=== PATIENT | male | born 1955 | race Caucasian/White ===

== ENCOUNTER 2019-04-03 06:03 | Day surgery (SDC) | payer MEDICARE, OTHER ==
[2019-04-03] MEDS ORDERED: Lactated Ringers 1,000 ML IV SCH (06:30)
[2019-04-03] MEDS ORDERED: DIPRIVAN 200 MG/20 ML IV ONE (07:36)
[2019-04-03 08:48] VITALS: BP 139/80; PULSE 58; O2SAT 98
--- NOTE | 2019-04-03 09:26 | OP ---
SURGERY DATE/TIME: 04/03/2019 0730 PREOPERATIVE DIAGNOSIS: Screening exam. POSTOPERATIVE DIAGNOSIS: Sigmoid diverticulosis otherwise normal colon. PROCEDURE: Colonoscopy. SURGEON: Dr. Gaitan. ANESTHESIA: MAC. Medications given by anesthesia department. HISTORY: The patient is a 64 year-old white male presenting now for screening colonoscopy. The patient reports no problems presently. He reports that he has had two previous colonoscopies that were normal. The patient is felt the need to have endoscopic evaluation. He was appraised of the risks of the procedure including the risk of perforation, phlebitis, untoward reaction to medication, bleeding and missed lesions. The patient verbalized his understanding and desired to have the procedure performed. DESCRIPTION OF PROCEDURE: The patient was given the medications by the anesthesia department. He had continuous pulse oximetry, ECG monitoring, intermittent blood pressure monitoring and tidal CO2 monitoring during the examination. He was placed in the left lateral decubitus position. A digital rectal examination was performed and revealed normal anal sphincter tone, no masses. The prostate was enlarged but smooth. The flexible Olympus pediatric colonoscope was used to intubate the rectum. A view of the colon was developed sequentially to the cecum. There was noted to be moderate sigmoid diverticula. Upon insertion and withdrawal, including a retroflex view in the rectum, there were no other mucosal lesions encountered. The scope was removed from the patient who tolerated the procedure well and was sent back to OP recovery in good condition. The prep was noted to be fair to good.
== END 2019-04-03 08:56 | disposition home or self-care (01) ==
LOC: SDC 06:03
PROVIDERS: ATTEND Family Medicine
DX: Z12.11 Encounter for screening for malignant neoplasm of colon (principal); K57.30 Diverticulosis of large intestine without perforation or abscess without bleeding
CPT/HCPCS: J2704

== ENCOUNTER 2020-01-19 16:43 | Emergency (ER) | payer MEDICARE, OTHER ==
[2020-01-19 17:27] LABS: Absolute Neutrophil Ct (ANC) 5.76 (1.4-6.9); BASOPHIL % 0.2 % (0.0-0.4); Basophil (Absolute #) 0.02 (0-0.4); Eosinophil % 6.3 % (0.00-5.0); Eosinophil (Absolute #) 0.52 (0-0.5); Hematocrit 44.5 % (42-50); Hemoglobin 14.9 gm/dl (12.5-18.0); Lymphocyte (Absolute #) 1.26 (1.0-4.6); Lymphocytes % 15.2 % (24.0-44.0); Mean Cell Volume 89.4 fl (78-100); Mean Corpuscular Hemoglobin 29.9 pg (26-32); Mean Corpuscular Hgb Concent. 33.5 g/dl (32-36); Mean Platelet Volume 9.1 fl (7.5-11.0); Monocyte (Absolute #) 0.71 (0.0-1.3); Monocytes % 8.6 % (0.0-12.0); Neutrophil % 69.7 % (36.0-66.0); Platelet Count 226 K/mm3 (150-450); Red Blood Count 4.98 M/mm3 (4.1-5.6); Red Cell Distribution Width 14.4 % (11.5-14.0); White Blood Count 8.3 K/mm3 (4.0-10.5)
[2020-01-19 17:36] LABS: INR 1.08 (0.8-3.0); PROTIME 12.2 SECONDS (8.83-12.87)
[2020-01-19 17:39] LABS: PTT 32.4 SECONDS (24.1-36.1)
[2020-01-19 17:42] LABS: ALBUMIN 4.5 g/dL (3.5-5.0); ALKALINE PHOSPHATASE 67 U/L (38-126); ANION GAP 12.5 MEQ/L (5-15); BLOOD UREA NITROGEN 17 mg/dL (9-20); CHLORIDE 100 mmol/L (98-107); Calcium 9.5 mg/dL (8.4-10.2); Carbon Dioxide 28 mmol/L (22-30); Creatinine 1 0.93 mg/dL (0.66-1.25); EST GLOMERULAR FILTRATION RATE > 60.0 ML/MIN; Glucose 137 mg/dL (74-106); Potassium 3.7 mmol/L (3.5-5.1); SGOT/AST 30 U/L (17-59); SGPT/ALT 22 U/L (0-50); SODIUM 136 mmol/L (137-145); Total Protein 7.8 g/dL (6.3-8.2)
--- NOTE | 2020-01-19 19:13 | ERPHSYRPT ---
- History of Present Illness Source: patient, EMS Exam Limitations: no limitations Patient Subjective Stated Complaint: fall secondary to vertigo Triage Nursing Assessment: pt to ED by EMS after fall. pt states he was walking in the street, got dizzy and fell face first. nose bleeding on arrival. controlled. reports dizziness before fall. denies blood thinners or LOC. A&Ox4. denies neck, head, or back pain currently. "my nose is sore." rates 4/10. noted swelling to nose. no diff breathing. Physician History: 65 yo wm who became lightheaded while walking on the street subsequently falling and hitting face. Pt sustained trauma to his nose and lips. He states that his pain is 1-2 out of 10. Pt has a mild JAMISON but denies cervical pain/T and L-spine pain/chest pain/dyspnea/focal weakness/N/V/D/fever. Although originally triaged as dizziness, pt complains more of being lightheaded. Occurred: just prior to arrival Reason for Fall: lightheaded, lost balance Injuries/Pain Location: head, face Loss of Consciousness: no loss of consciousness Quality: aching Severity of Pain-Max: mild Severity of Pain-Current: mild Modifying Factors: Improves With: nothing Associated Symptoms (Fall): headache, lightheadedness, No abdominal pain, No back pain, No confusion, No chest pain, No dizziness, No extremity injury, No muscle spasms, No nausea, No neck pain, No ringing in ears, No seizures, No shortness of breath, No slurred speech, No trouble walking, No vomiting, No vision changes Allergies/Adverse Reactions: amoxicillin [From Augmentin] Allergy (Mild, Verified 04/03/19 06:23) Stomach Pain clavulanic acid [From Augmentin] Allergy (Mild, Verified 04/03/19 06:23) Stomach Pain Home Medications: ARIPiprazole [Aripiprazole] 5 mg PO DAILY 03/27/19 [History] Alprazolam [Xanax] 0.5 mg PO TID PRN 03/27/19 [History] Duloxetine HCl [Cymbalta] 60 mg PO DAILY 03/27/19 [History] Hydrochlorothiazide 25 mg [hydroDIURIL 25 MG] 25 mg PO DAILY 03/27/19 [History] Lisinopril 10 mg [Zestril 10 MG] 10 mg PO DAILY 03/27/19 [History] Pramipexole Di-HCl [Mirapex] 1 mg PO DAILY 03/27/19 [History] Tramadol HCl 50 mg [Ultram 50 mg] 50 mg PO BID PRN 03/27/19 [History] Verapamil HCl [Verapamil ER] 120 mg PO DAILY 03/27/19 [History] Aspirin EC 81 mg [Ecotrin 81 mg] 81 mg PO DAILY 04/03/19 [History] Dorzolamide HCl/Timolol Maleat [Dorzolamide-Timolol Eye Drops] 1 drop OP DAILY 01/19/20 [History] Ezetimibe 10 mg PO HS 01/19/20 [History] Olopatadine HCl Ophth [Patanol 1% OPHTHALMIC] 1 drop OP DAILY 01/19/20 [History] Hx Tetanus, Diphtheria Vaccination/Date Given: Yes Hx Influenza Vaccination/Date Given: Yes Hx Pneumococcal Vaccination/Date Given: Yes Immunizations Up to Date: Yes Travel Risk - International Travel Have you traveled outside of the country in past 3 weeks: No - Coronavirus Screening Are you exhibiting any of the following symptoms?: No Close contact with a COVID-19 positive Pt in past 14-21 Days: No - Review of Systems Constitutional: No Symptoms Eyes: No Symptoms Ears, Nose, & Throat: Mouth Pain Respiratory: No Symptoms Cardiac: No Symptoms Abdominal/Gastrointestinal: No Symptoms Genitourinary Symptoms: No Symptoms Musculoskeletal: No Symptoms Skin: No Symptoms Neurological: Headache, No Dizziness, No Focal Weakness, No Gait Changes, No Irritability, No Lethargy, No Paralysis, No Parasthesia, No Seizure, No Sensory Changes, No Speech Changes, No Tics, No Tremors, No Vertigo Psychological: No Symptoms Endocrine: No Symptoms Hematologic/Lymphatic: No Symptoms Immunological/Allergic: No Symptoms - Past Medical History Pertinent Past Medical History: Yes Neurological History: No Pertinent History ENT History: Glaucoma Cardiac History: Hypertension Respiratory History: Sleep Apnea Endocrine Medical History: No Pertinent History Musculoskeletal History: No Pertinent History GI Medical History: No Pertinent History History: No Pertinent History Psycho-Social History: Anxiety, Depression Male Reproductive Disorders: No Pertinent History - Past Surgical History Past Surgical History: Yes Neuro Surgical History: No Pertinent History Cardiac: No Pertinent History Respiratory: No Pertinent History Gastrointestinal: No Pertinent History Genitourinary: No Pertinent History Musculoskeletal: Orthopedic Surgery Male Surgical History: No Pertinent History Other Surgical History: remove mrsa upper right arm. left foot bone spur removal - Social History Smoking Status: Never smoker Exposure to second hand smoke: No Drug Use: none Patient Lives Alone: Yes Significant Family History: no pertinent family hx - Nursing Vital Signs Nursing Vital Signs: Initial Vital Signs Temperature 98.4 F 01/19/20 16:44 Pulse Rate 92 H 01/19/20 16:44 Respiratory Rate 18 01/19/20 16:44 Blood Pressure 121/94 01/19/20 16:44 O2 Sat by Pulse Oximetry 96 01/19/20 16:44 Pain Scale Pain Intensity 2 - Alec Coma Score Best Eye Response (Alec): (4) open spontaneously Best Verbal Response (Alec): (5) oriented Best Motor Response (Alec): (6) obeys commands [place] Total: 15 - Physical Exam General Appearance: no apparent distress Head Injury: no evidence of injury Eye Exam: PERRL/EOMI, eyes nml inspection, No post op pupil defect (L), No post op pupil defect (R), No EOM palsy/anisocoria ENT Exam: airway nml, nml ext.inspection, oral injury (Bleeding from lips wo dental injury), other (Nasal bridge edematous and ttp wo active bleeding), No clear fluid (ears), No clear fluid (nose) Neck Exam: supple, trachea midline, full range of motion, normal inspection, No focal neuro deficit (C-spine nttp) Respiratory/Chest Exam: normal breath sounds, No respiratory distress Cardiovascular Exam: normal heart sounds, No murmur (tachycardic) Gastrointestinal Exam: soft, normal bowel sounds, No tenderness Back Exam: normal inspection (No T or L-spine TTP) Extremity Exam: normal inspection, normal range of motion, pelvis stable, No deformities Neurologic Exam: alert, oriented x 3, cooperative, backside grinder II-XII nml as tested, normal mood/affect, sensation nml, No motor deficits, No sensory deficit Skin Exam: normal color, warm, dry SpO2 Interpretation: normal SpO2: 96 O2 Delivery: Room Air - Course EKG Interpreted by Me: RATE (Sinus tach/Poor R wave progression/Normal QT-QTc), Other (EKG #2 NSR/borderline increased QTc/Poor R wave progression) - CT Exams Maxillofacial Bones CT Interpretation: Discussed w/radiologist (Minimally displaced B nasal bone fx/Maxillary spine fx) Head CT Interpretation: Discussed w/radiologist (No skull fx or bleed) Ordered Tests: Active Orders 24 hr Category Date Time Status Cane Weigher Helper STAT Care 01/19/20 21:01 Completed EKG-ER Only STAT Care 01/19/20 20:59 Completed IV Insertion STAT Care 01/19/20 16:55 Completed FACIAL BONES WO CONTRAST [CT] Stat Exams 01/19/20 16:50 Taken HEAD WITHOUT CONTRAST [CT] Stat Exams 01/19/20 16:50 Taken CBC W DIFF Stat Lab 01/19/20 17:20 Completed CMP Stat Lab 01/19/20 17:20 Completed PROTIME WITH INR Stat Lab 01/19/20 17:20 Completed PTT Stat Lab 01/19/20 17:20 Completed TROPONIN Q3H Lab 01/19/20 17:20 Completed TROPONIN Q3H Lab 01/19/20 20:21 Completed Medication Summary Discontinued Medications Generic Name Dose Route Start Last Admin Trade Name Freq PRN Reason Stop Dose Admin Aspirin 324 mg 01/19/20 21:28 01/19/20 21:33 Baby Aspirin 81 Mg Chew PO 01/19/20 21:29 324 mg STAT ONE Administration Diphtheria/Tetanus/Acell Pertussis 0.5 ml 01/19/20 19:29 01/19/20 19:33 Adacel Vial IM 01/19/20 19:30 0.5 ml .ONCE ONE Administration Diphtheria/Tetanus/Acell Pertussis Confirm 01/19/20 19:31 Adacel Vial Administered 01/19/20 19:32 Dose 0.5 ml IM .STK-MED ONE Lab/Rad Data: Laboratory Result Diagrams 01/19/20 17:20 01/19/20 17:20 Laboratory Results 01/19/20 01/19/20 01/19/20 Range/Units 20:21 17:20 17:20 WBC (4.0-10.5) K/mm3 RBC (4.1-5.6) M/mm3 Hgb (12.5-18.0) gm/dl Hct (42-50) % MCV (78-100) fl MCH (26-32) pg MCHC (32-36) g/dl RDW (11.5-14.0) % Plt Count (150-450) K/mm3 MPV (7.5-11.0) fl Gran % (36.0-66.0) % Eos # (Auto) (0-0.5) Absolute Lymphs (auto) (1.0-4.6) Absolute Monos (auto) (0.0-1.3) Lymphocytes % (24.0-44.0) % Monocytes % (0.0-12.0) % Eosinophils % (0.00-5.0) % Basophils % (0.0-0.4) % Absolute Granulocytes (1.4-6.9) Basophils # (0-0.4) PT 12.2 (8.83-12.87) SECONDS INR 1.08 (0.8-3.0) APTT 32.4 (24.1-36.1) SECONDS Sodium (137-145) mmol/L Potassium (3.5-5.1) mmol/L Chloride (98-107) mmol/L Carbon Dioxide (22-30) mmol/L Anion Gap (5-15) MEQ/L BUN (9-20) mg/dL Creatinine (0.66-1.25) mg/dL Estimated GFR ML/MIN Glucose (74-106) mg/dL Calcium (8.4-10.2) mg/dL Total Bilirubin (0.2-1.3) mg/dL AST (17-59) U/L ALT (0-50) U/L Alkaline Phosphatase (38-126) U/L Troponin I 0.090 H* 0.016 (0.000-0.034) ng/mL Serum Total Protein (6.3-8.2) g/dL Albumin (3.5-5.0) g/dL 01/19/20 01/19/20 Range/Units 17:20 17:20 WBC 8.3 (4.0-10.5) K/mm3 RBC 4.98 (4.1-5.6) M/mm3 Hgb 14.9 (12.5-18.0) gm/dl Hct 44.5 (42-50) % MCV 89.4 (78-100) fl MCH 29.9 (26-32) pg MCHC 33.5 (32-36) g/dl RDW 14.4 H (11.5-14.0) % Plt Count 226 (150-450) K/mm3 MPV 9.1 (7.5-11.0) fl Gran % 69.7 H (36.0-66.0) % Eos # (Auto) 0.52 H (0-0.5) Absolute Lymphs (auto) 1.26 (1.0-4.6) Absolute Monos (auto) 0.71 (0.0-1.3) Lymphocytes % 15.2 L (24.0-44.0) % Monocytes % 8.6 (0.0-12.0) % Eosinophils % 6.3 H (0.00-5.0) % Basophils % 0.2 (0.0-0.4) % Absolute Granulocytes 5.76 (1.4-6.9) Basophils # 0.02 (0-0.4) PT (8.83-12.87) SECONDS INR (0.8-3.0) APTT (24.1-36.1) SECONDS Sodium 136 L (137-145) mmol/L Potassium 3.7 (3.5-5.1) mmol/L Chloride 100 (98-107) mmol/L Carbon Dioxide 28 (22-30) mmol/L Anion Gap 12.5 (5-15) MEQ/L BUN 17 (9-20) mg/dL Creatinine 0.93 (0.66-1.25) mg/dL Estimated GFR > 60.0 ML/MIN Glucose 137 H (74-106) mg/dL Calcium 9.5 (8.4-10.2) mg/dL Total Bilirubin 0.60 (0.2-1.3) mg/dL AST 30 (17-59) U/L ALT 22 (0-50) U/L Alkaline Phosphatase 67 (38-126) U/L Troponin I (0.000-0.034) ng/mL Serum Total Protein 7.8 (6.3-8.2) g/dL Albumin 4.5 (3.5-5.0) g/dL - Progress Progress: improved Progress Note: 01/19/20 21:14 Tdap given Pt with minimal pain during stay and refused all pain meds Troponin #2 elevated wo EKG changes Transfer per Dr. Brothers 01/19/20 21:[address] Magaña at [facility]. Wants to give ASA. Counseled pt/family regarding: lab results, diagnosis, rad results - Departure Departure Disposition: Transfer Clinical Impression: Nasal bone fracture, NSTEMI (non-ST elevated myocardial infarction) Condition: Stable Critical Care Time: No Referrals: XANDER ANDRE [Primary Care Provider] -
[2020-01-19] MEDS ORDERED: Adacel Vial IM ONE ×2 (19:29→19:31)
[2020-01-19] MEDS ORDERED: BABY ASPIRIN 81 MG CHEW PO ONE (21:28)
[2020-01-19 21:42] VITALS: BP 114/92; PULSE 104
[2020-01-19 22:15] VITALS: O2SAT 96
--- NOTE | 2020-01-20 08:26 | XRAY ---
Indication: Headache and epistaxis following fall. Multiple contiguous axial images obtained through the head without contrast. Comparison: None There is global atrophy and mild periventricular degenerative micro-ischemia bilaterally within normal limits for patient's age. No acute intracranial hemorrhage, abnormal extra-axial fluid collection, or mass effect. Fourth ventricle is midline without hydrocephalus. Bony calvarium intact. Visualized paranasal sinuses and mastoid air cells are clear. CT facial bones reported separately. Impression: Nonacute senile brain.
--- NOTE | 2020-01-20 08:30 | XRAY ---
Indication: Headache, epistaxis, and deformed nose following fall. Multiple contiguous axial images obtained through the facial bones. Two-dimensional sagittal and coronal reformatted images obtained. Comparison: None There is minimally depressed bilateral nasal bone fracture with mild angulation to the right and moderate overlying soft tissue swelling. Spine of the maxilla also demonstrates nondisplaced fracture. Orbits including roof, seg[place]ia, and floors intact. Paranasal sinuses and nasal passages are clear. Minimal nasal septal deviation. Patient is edentulous with incidental lower frontal dental implants. Visualized cervical spine demonstrates mild/moderate multilevel degenerative changes and 2-3 mm retrolisthesis of C3 on 4. Remaining visualized noncontrasted soft tissues are unremarkable. CT head reported separately. Impression: 1. Acute fractures of the nasal bone and spine of the maxilla as detailed. 2. Incidental multilevel cervical degenerative spondylosis and minimal nasal septal deviation.
== END 2020-01-19 21:47 | disposition short-term general hospital (02) ==
LOC: ED 16:43
DX: S02.2XXA Fracture of nasal bones, initial encounter for closed fracture (principal); W18.30XA Fall on same level, unspecified, initial encounter; Y93.01 Activity, walking, marching and hiking; Y92.488 Other paved roadways as the place of occurrence of the external cause; R42 Dizziness and giddiness; Z79.899 Other long term (current) drug therapy; K13.79 Other lesions of oral mucosa; R51 Headache; I10 Essential (primary) hypertension; Z86.14 Personal history of Methicillin resistant Staphylococcus aureus infection; I21.4 Non-ST elevation (NSTEMI) myocardial infarction
CPT/HCPCS: 36000; 36415; 70450; 70486; 80053; 84484; 85025; 85610; 85730; 90471; 90715; 93005; 93041; 99285; A9270-GY